=== PATIENT | male | born 1950 | race Caucasian/White ===

== ENCOUNTER 2024-02-21 18:43 | Inpatient (IN) | payer MEDICARE, BC ==
[~2024-02-21] VITALS: Ht 193 cm; Wt 84.1 kg
[2024-02-21 19:38] LABS: ALANINE AMINOTRANSFERASE 9 U/L (16-63); ALBUMIN 4.1 g/dL (3.4-5.0); ALKALINE PHOSPHATASE 86 U/L (50-136); ASPARTATE AMINOTRANSFERASE 17 U/L (15-37); BILIRUBIN,DIRECT 0.3 mg/dL (0.0-0.2); BILIRUBIN,TOTAL 2.7 mg/dL (0.2-1.0); CALCIUM 8.7 mg/dL (8.5-10.1); CARBON DIOXIDE 28 mmol/L (21-32); CHLORIDE 101 mmol/L (98-107); CREATININE 1.8 mg/dL (0.6-1.3); GLUCOSE 102 mg/dL (74-106); LIPASE 33 U/L (16-77); POTASSIUM 3.6 mmol/L (3.5-5.1); SODIUM SERUM 139 mmol/L (136-145); TOTAL PROTEIN, SERUM 6.9 g/dL (6.4-8.2); UREA NITROGEN, BLOOD 34 mg/dL (7-18)
[2024-02-21 19:39] LABS: BASOPHILS % (AUTO) 0.5 % (0.0-2.0); EOSINOPHILS # (AUTO) 0.1 K/uL (0.0-0.7); EOSINOPHILS % (AUTO) 1.2 % (0.0-7.0); HEMATOCRIT 44.5 % (36.7-47.1); HEMOGLOBIN 15.5 g/dL (12.5-16.3); LYMPHOCYTES % (AUTO) 11.2 % (20.5-51.5); MEAN CORPUSCULAR HEMOGLOBIN 32.6 uug (23.8-33.4); MEAN CORPUSCULAR HGB CONC 35 g/dL (32.5-36.3); MEAN CORPUSCULAR VOLUME 93.5 fL (73.0-96.2); MONOCYTES # (AUTO) 0.8 K/uL (0.1-1.30); MONOCYTES % (AUTO) 9.8 % (0.0-11.0); NEUTROPHILS # (AUTO) 6.6 K/uL (1.8-8.9); NEUTROPHILS % (AUTO) 77.3 % (38.5-71.5); PLATELET COUNT (AUTO) 131 K/uL (152-348); RED BLOOD CELL COUNT(AUTO) 4.76 MIL/uL (4.06-5.63); RED CELL DISTRIBUTION WIDTH 13.9 % (12.1-16.2); WHITE BLOOD COUNT (AUTO) 8.5 K/uL (3.6-10.2)
[2024-02-21] MEDS ORDERED: PANT40TA49 PO (21:17)
[2024-02-21] MEDS ORDERED: AMPH15CA3 PO (21:17)
[2024-02-21] MEDS ORDERED: FLUD0.1T PO (21:17)
[2024-02-21] MEDS ORDERED: CARB1TAB21 PO (21:17)
[2024-02-21] MEDS ORDERED: TRIH2TAB5 PO (21:17)
[2024-02-21 22:05] LABS: *BILIRUBIN,URIN 1+ (NEGATIVE); *BLOOD, URINE 3+ (NEGATIVE); *CLARITY,URINE CLEAR (CLEAR); *COLOR,URINE YELLOW (YELLOW); *KETONES,URINE NEGATIVE (NEGATIVE); *PROTEIN,URINE 1+ (NEGATIVE); *UROBILINOGEN,URINE 0.2 E.U./dl (NORMAL); LEUKOCYTE ESTERASE ,URINE NEGATIVE (NEGATIVE); NITRITE, URINE NEGATIVE (NEGATIVE); UGLUCOSE NEGATIVE (NEGATIVE)
[2024-02-21] MEDS ORDERED: ONDANSETRON 4 MG/2 ML VIAL IV PRN (22:15)
[2024-02-21] MEDS ORDERED: REMEDY ESSENTIAL ZINC PASTE 113 GM TP PRN (22:15)
[2024-02-21] MEDS ORDERED: ACETAMINOPHEN 325 MG TABLET PO PRN (22:15)
[2024-02-21] MEDS ORDERED: MORPHINE SULFATE 2 MG/1 ML DISP.SYRIN ONE (22:21)
[2024-02-21] MEDS: MORPHINE SULFATE 2 MG/1 ML DISP.SYRIN IV PRN (22:25)
[2024-02-21] MEDS: IV 1/2NS 1000 ML 1,000 ML IV PRN (22:30)
[2024-02-21 22:38] LABS: RBC,URINE 50-80 /HPF (0-3)
[2024-02-21 22:39] LABS: BACTERIA,URINE FEW /HPF (NONE SEEN); SQUAMOUS EPITHELIAL CELL,UR FEW /HPF (NONE SEEN); WBC,URINE 0-3 /HPF (0-3)
[2024-02-22 02:06] VITALS: BP 157/105; TEMP 97.6; O2SAT 97
[2024-02-22 04:25] VITALS: BP 111/77; TEMP 98.2; O2SAT 100
[2024-02-22] MEDS ORDERED: PROPOFOL 200 MG/20 ML BOTTLE ONE (06:15)
[2024-02-22 08:00] VITALS: BP 132/88; TEMP 97.9; O2SAT 98
[2024-02-22 08:08] LABS: BASOPHILS % (AUTO) 0.3 % (0.0-2.0); EOSINOPHILS # (AUTO) 0.1 K/uL (0.0-0.7); HEMOGLOBIN 14.6 g/dL (12.5-16.3); LYMPHOCYTES % (AUTO) 10.4 % (20.5-51.5); MEAN CORPUSCULAR HEMOGLOBIN 32.6 uug (23.8-33.4); MEAN CORPUSCULAR HGB CONC 35 g/dL (32.5-36.3); MEAN CORPUSCULAR VOLUME 94.1 fL (73.0-96.2); MONOCYTES # (AUTO) 1.1 K/uL (0.1-1.30); MONOCYTES % (AUTO) 11.1 % (0.0-11.0); NEUTROPHILS # (AUTO) 7.5 K/uL (1.8-8.9); NEUTROPHILS % (AUTO) 77.2 % (38.5-71.5); PLATELET COUNT (AUTO) 150 K/uL (152-348); RED BLOOD CELL COUNT(AUTO) 4.46 MIL/uL (4.06-5.63); RED CELL DISTRIBUTION WIDTH 13.7 % (12.1-16.2); WHITE BLOOD COUNT (AUTO) 9.8 K/uL (3.6-10.2)
[2024-02-22 08:10] LABS: DIFFERENTIAL COMMENT 1
[2024-02-22 08:15] LABS: CALCIUM 7.8 mg/dL (8.5-10.1); CARBON DIOXIDE 22 mmol/L (21-32); CHLORIDE 102 mmol/L (98-107); CREATININE 1.6 mg/dL (0.6-1.3); GLUCOSE 94 mg/dL (74-106); MAGNESIUM 2.1 mg/dL (1.8-2.4); POTASSIUM 2.9 mmol/L (3.5-5.1); SODIUM SERUM 136 mmol/L (136-145); UREA NITROGEN, BLOOD 32 mg/dL (7-18)
[2024-02-22] MEDS: PANTOPRAZOLE SODIUM 40 MG VIAL IV SCH (08:34)
[2024-02-22] MEDS: POTASSIUM CHLORIDE 50 ML IV SCH (11:00)
[2024-02-22 12:00] VITALS: BP 135/94; TEMP 97.1; O2SAT 98
[2024-02-22] MEDS ORDERED: TRAZ-257 PO (13:02)
[2024-02-22 16:25] VITALS: BP 118/73; TEMP 98.1; O2SAT 97
[2024-02-22] MEDS: TRIHEXYPHENIDYL HCL 2 MG TABLET PO SCH (16:47)
[2024-02-22] MEDS: PANTOPRAZOLE SODIUM 40 MG TABLET.DR PO SCH (16:47)
[2024-02-22] MEDS: CARBIDOPA/LEVODOPA 25-100MG TABLET PO SCH (16:47)
[2024-02-22] MEDS ORDERED: TRAZODONE 100 MG TABLET PO SCH (21:00)
[2024-02-23] MEDS ORDERED: D AMPHET PO SCH (09:00)
[2024-02-23] MEDS ORDERED: AMPHET PO SCH (09:00)
[2024-02-23] MEDS ORDERED: [UNRECOGNIZED DRUG - OTHER] PO SCH (09:00)
[2024-02-23] MEDS ORDERED: FLUDROCORTISONE ACETATE 0.1 MG TABLET PO SCH (09:00)
[2024-02-23] MEDS ORDERED: AMPHET ASP PO SCH (09:00)
== END 2024-02-22 17:45 | disposition home or self-care (01) | DRG 345 ==
LOC: ER 18:47 → TELE3 21:16
PROVIDERS: ADMIT Internal Medicine; ATTEND Internal Medicine
PROC: 0DSN8ZZ Reposition Sigmoid Colon, Via Natural or Artificial Opening Endoscopic (ICD-10-PCS; principal; 2024-02-22)
PROC: 05H933Z Insertion of Infusion Device into Right Brachial Vein, Percutaneous Approach (ICD-10-PCS; 2024-02-22)
DX: K56.2 Volvulus (principal); N17.9 Acute kidney failure, unspecified; G20.A1 Parkinson's disease without dyskinesia, without mention of fluctuations; Z79.899 Other long term (current) drug therapy; D69.6 Thrombocytopenia, unspecified; Z90.79 Acquired absence of other genital organ(s); N40.1 Benign prostatic hyperplasia with lower urinary tract symptoms; K64.8 Other hemorrhoids; N18.9 Chronic kidney disease, unspecified
CPT/HCPCS: 36415; 83690; 83735; 85025; 85730; A4606; A4663; C9113; G0378; J2270; J3480; J3490; J7040